=== PATIENT | male | born 1955 | race Caucasian/White ===

== ENCOUNTER 2020-01-21 08:02 | Emergency (ER) | payer BC ==
[2020-01-21 08:17] VITALS: BP 172/81
[2020-01-21] MEDS ORDERED: IPRATROPIUM/ALBUTEROL 0.5-2.5 MG/3 ML AMPUL NEB ONE (08:34)
[2020-01-21] MEDS ORDERED: GLIMEPIRIDE 1 MG TABLET PO ONE (08:35)
[2020-01-21] MEDS ORDERED: PIOGLITAZONE HCL 30 MG TABLET PO ONE (08:35)
[2020-01-21] MEDS ORDERED: METFORMIN HCL 500 MG TABLET PO ONE (08:36)
[2020-01-21] MEDS ORDERED: LISINOPRIL 10 MG TABLET PO ONE (08:36)
--- NOTE | 2020-01-21 08:53 | ER Document Report ---
Entered by LAURO FRY SCRIBE 01/21/20824 Acting as scribe for:LILY FAIRCHILD MD ED General - General Chief Complaint: Congestion Stated Complaint: SHORT OF BREATH,COUGH Time Seen by Provider: 01/21/20 08:15 Primary Care Provider: MAYA KAPOOR MD [Primary Care Provider] - Follow up as needed Mode of Arrival: Ambulatory Information source: Patient Notes: This 64 year old male patient presents to the emergency department today with complaints of shortness of breath which he noticed when he woke up this morning. Patient reports that he went to [facility] urgent care and they sent him here. Patient mentions that he has had bronchitis in the past and it felt like this. Patient mentions that he is prescribed an advair inhaler but mentions that he only uses it has needed, mentioning that he used it this morning. He reports that he does not have an albuterol inhaler at home. - Related Data Allergies/Adverse Reactions: No Known Allergies Allergy (Verified 01/21/20 08:08) Home Medications: bp. dm. neuropathy Past Medical History - General Information source: Patient - Social History Smoking Status: Former Smoker Cigarette use (# per day): No Chew tobacco use (# tins/day): No Frequency of alcohol use: None Drug Abuse: None Family History: Reviewed & Not Pertinent Patient has homicidal ideation: No - Past Medical History Cardiac Medical History: Reports: Hx Hypertension Endocrine Medical History: Reports: Hx Diabetes Mellitus Type 2 Past Surgical History: Reports: Other - Unknown procedure to penis as child Review of Systems - Review of Systems Constitutional: No symptoms reported EENT: See HPI, Nose congestion Cardiovascular: No symptoms reported Respiratory: See HPI, Short of breath Gastrointestinal: No symptoms reported Genitourinary: No symptoms reported Male Genitourinary: No symptoms reported Musculoskeletal: No symptoms reported Skin: No symptoms reported Hematologic/Lymphatic: No symptoms reported Neurological/Psychological: No symptoms reported -: Yes All other systems reviewed and negative Physical Exam - Vital signs Vitals: Temp 98.1 F 01/21/20 08:09 - Notes Notes: Physical Exam: General: Alert, appears well. HEENT: Normocephalic. Atraumatic. PERRL. Extraocular movements intact. Oropharynx clear. Neck: Supple. Non-tender. Respiratory: No respiratory distress, does not appear short of breath. Wheezing and rhonchi bilaterally. Cardiovascular: Regular rate and rhythm. Abdominal: Obese. Non-tender. No distension. Normal Bowel Sounds. Back: No gross abnormalities. Extremities: Moves all four extremities. Upper extremities: Normal inspection. Normal ROM. Lower extremities: Normal inspection. No edema. Normal ROM. Neurological: Normal cognition. AAOx4. Normal speech. Psychological: Normal affect. Normal Mood. Skin: Warm. Dry. Normal color. Course - Re-evaluation Re-evalutation: 01/21/20 10:50 After the DuoNeb, patient feels better and the wheezes seem to be gone. There is some rhonchi when he coughs consistent with his history that suggest he is developed a viral bronchitis and is wheezing. - Vital Signs Vital signs: Temp Pulse Resp BP Pulse Ox 98.1 F 82 16 172/81 H 95 01/21/20 08:10 01/21/20 08:10 01/21/20 08:10 01/21/20 08:10 01/21/20 08:10 Discharge - Discharge Clinical Impression: Viral upper respiratory tract infection with cough, Bronchitis with wheezing Condition: Stable Disposition: HOME, SELF-CARE Additional Instructions: Bronchitis with Bronchospasm (Wheezing) You have bronchitis with bronchospasm (wheezing). Sometimes people develop wheezing with a chest cold. This occurs either because of an underlying tendency toward asthma or because the virus itself irritates the bronchial tubes. This irritation causes cough, shortness of breath, and wheezing. Emergency treatment of bronchospasm may include adrenaline shots or bronchodilator aerosol. You may feel lightheaded and have a rapid pulse for an hour or two. Rest and get plenty of fluids. At home, we'll treat you with a bronchodilator inhaler. Corticosteroids may be required for some patients. Until you recover, avoid chemical fumes, dusts, pollens, and exercising in very cold or dry air. If you smoke, stop now! Most cases of bronchitis get better without antibiotics. We prescribe antibiotics when we believe bacteria are damaging your airways, or if there's high risk the bronchitis will worsen into pneumonia. Increase your fluid intake. A cool mist humidifier may make your lungs more comfortable. An expectorant (cough medicine that loosens phlegm) can help. Repeated episodes of bronchitis and bronchospasm may result in lung damage -- for example, chronic bronchitis, recurrent pneumonias, or emphysema. If you develop a fever, increased wheezing, chest pain, or severe shortness of breath, you should contact the doctor immediately. Use your Advair inhaler twice daily. Use the albuterol inhaler 2 puffs every 2-4 hours for wheezing as needed. Drink plenty of fluids and get plenty of rest. You were given your morning medicines of Metformin, glimepiride, pioglitazone, and lisinopril. Follow-up with Dr. Harman if not improving. RETURN TO THE EMERGENCY ROOM IF ANY NEW OR WORSENING SYMPTOMS. Prescriptions: Albuterol Sulfate [Proair Hfa Inhalation Aerosol 8.5 gm Mdi] 2 puff IH ASDIR PRN #1 mdi PRN Reason: Referrals: MAYA KAPOOR MD [Primary Care Provider] - Follow up as needed I personally performed the services described in the documentation, reviewed and edited the documentation which was dictated to the scribe in my presence, and it accurately records my words and actions.
== END 2020-01-21 11:15 | disposition home or self-care (01) ==
LOC: ER 08:02
DX: J40 Bronchitis, not specified as acute or chronic (principal); J06.9 Acute upper respiratory infection, unspecified; R06.02 Shortness of breath; I10 Essential (primary) hypertension; E11.9 Type 2 diabetes mellitus without complications
CPT/HCPCS: 94640; 99283; J3490

== ENCOUNTER 2020-01-23 11:59 | Emergency (ER) | payer BC ==
--- NOTE | 2020-01-23 13:26 | RADIOLOGY REPORT (SQ) ---
EXAM DESCRIPTION: CHEST SINGLE VIEW IMAGES COMPLETED DATE/TIME: 01/23/2020 11:54 am REASON FOR STUDY: shortness of breath. COMPARISON: None. EXAM PARAMETERS: NUMBER OF VIEWS: One view. TECHNIQUE: Single frontal radiographic view of the chest acquired. RADIATION DOSE: NA LIMITATIONS: None. FINDINGS: LUNGS AND PLEURA: No opacities, masses or pneumothorax. No pleural effusion. MEDIASTINUM AND HILAR STRUCTURES: No masses. Contour normal. HEART AND VASCULAR STRUCTURES: Heart normal in size. Normal vasculature. BONES: No acute findings. HARDWARE: None in the chest. OTHER: No other significant finding. IMPRESSION: NO ACUTE RADIOGRAPHIC FINDING IN THE CHEST. TECHNICAL DOCUMENTATION: JOB ID: [id number] 2010 [employer]- All Rights Reserved Reading location - IP/workstation name: [id number]
[2020-01-23] MEDS ORDERED: IPRATROPIUM/ALBUTEROL 0.5-2.5 MG/3 ML AMPUL NEB ONE (13:33)
[2020-01-23 13:42] LABS: ABSOLUTE EOSINOPHILS # (AUTO) 0.1 10^3/uL (0.0-0.6); ABSOLUTE MONOCYTES (AUTO) 0.7 10^3/uL (0.1-1.4); ABSOLUTE NEUT (AUTO) 5.3 10^3/uL (1.7-8.2); BASOPHILS % (AUTO) 0.5 % (0-2); EOSINOPHILS % (AUTO) 1.4 % (0-6); HEMATOCRIT 38.9 % (37.9-51.0); HEMOGLOBIN 13.4 g/dL (13.5-17.0); LYMPHOCYTES % (AUTO) 24.7 % (13-45); MEAN CORPUSCULAR HEMOGLOBIN 30.8 pg (27.0-33.4); MEAN CORPUSCULAR HGB CONC 34.4 g/dL (32.0-36.0); MEAN CORPUSCULAR VOLUME 90 fl (80-97); MONOCYTES % (AUTO) 8.6 % (3-13); PLATELET COUNT 191 10^3/uL (150-450); RED BLOOD COUNT 4.34 10^6/uL (4.35-5.55); RED CELL DISTRIBUTION WIDTH 14.2 % (11.5-14.0); SEGMENTED NEUTROPHILS % (AUTO) 64.8 % (42-78); TOTAL CELLS COUNTED % (AUTO) 100 %; WHITE BLOOD COUNT 8.1 10^3/uL (4.0-10.5)
[2020-01-23 14:02] LABS: ALBUMIN 4.5 g/dL (3.5-5.0); ALKALINE PHOSPHATASE 50 U/L (38-126); ANION GAP 10 (5-19); ASPARTATE AMINO TRANSFERASE 27 U/L (17-59); BILIRUBIN,DIRECT 0.1 mg/dL (0.0-0.4); BILIRUBIN,TOTAL 0.7 mg/dL (0.2-1.3); BLOOD UREA NITROGEN 17 mg/dL (7-20); CALCIUM 9.9 mg/dL (8.4-10.2); CARBON DIOXIDE 28 mmol/L (22-30); CHLORIDE 102 mmol/L (98-107); GLUCOSE 86 mg/dL (75-110); POTASSIUM 4.1 mmol/L (3.6-5.0); TOTAL PROTEIN 7.6 g/dL (6.3-8.2)
[2020-01-23] MEDS ORDERED: PREDNISONE 20 MG TABLET PO ONE (14:05)
[2020-01-23] MEDS ORDERED: ALBUTEROL SULFATE 0.083% NEB 2.5 MG/3 ML AMPUL NEB ONE ×2 (14:05→14:41)
--- NOTE | 2020-01-23 14:23 | ER Document Report ---
Entered by LAURO FRY SCRIBE 01/23/20 1403 Acting as scribe for:LILY FAIRCHILD MD ED Respiratory Problem - General Chief Complaint: Shortness Of Breath Stated Complaint: SHORT OF BREATH,CONGESTION Time Seen by Provider: 01/23/20 13:32 Primary Care Provider: MAYA KAPOOR MD [Primary Care Provider] - Follow up as needed Mode of Arrival: Ambulatory Information source: Patient Notes: This 64-year-old male patient presents to the emergency department today with complaints of waking up this morning at 5:00 AM with shortness of breath, stating he felt restless and "could not get still". Patient was seen here x2 days ago for similar symptoms and he was diagnosed with bronchitis. He had considerable improvement with the nebulizer treatment so he was prescribed an albuterol inhaler which he has been using and he has continued to use his Advair Diskus as prescribed. He was not put on prednisone at the time because of his history of type 2 diabetes and because of how quickly he cleared up with the breathing treatments. Patient did mention to nursing staff that he came into contact with someone that had COVID-19 a week or so ago, this person tested positive in November and they are now over the illness according to him. - Related Data Allergies/Adverse Reactions: No Known Allergies Allergy (Verified 01/21/20 08:08) Past Medical History - General Information source: Patient - Social History Smoking Status: Former Smoker Cigarette use (# per day): No Chew tobacco use (# tins/day): No Frequency of alcohol use: None Drug Abuse: None Occupation: produce [employer] Lives with: Family Family History: Reviewed & Not Pertinent - Past Medical History Cardiac Medical History: Reports: Hx Hypertension Pulmonary Medical History: Reports: Hx Bronchitis Endocrine Medical History: Reports: Hx Diabetes Mellitus Type 2 Past Surgical History: Reports: Other - Unknown procedure to penis as child Review of Systems - Review of Systems Constitutional: No symptoms reported EENT: See HPI, Nose congestion Cardiovascular: No symptoms reported Respiratory: See HPI, Short of breath Gastrointestinal: No symptoms reported Genitourinary: No symptoms reported Male Genitourinary: No symptoms reported Musculoskeletal: No symptoms reported Skin: No symptoms reported Hematologic/Lymphatic: No symptoms reported Neurological/Psychological: No symptoms reported -: Yes All other systems reviewed and negative Physical Exam - Vital signs Vitals: Resp Pulse Ox 17 95 01/23/20 12:38 01/23/20 12:38 - Notes Notes: Physical Exam: General: Alert, appears well. HEENT: Normocephalic. Atraumatic. PERRL. Extraocular movements intact. Oropharynx clear. Neck: Supple. Non-tender. Respiratory: Mild respiratory distress. Wheezing and rhonchi bilaterally. Cardiovascular: Regular rate and rhythm. Abdominal: Obese. Non-tender. No distension. Normal Bowel Sounds. Back: No gross abnormalities. Extremities: Moves all four extremities. Upper extremities: Normal inspection. Normal ROM. Lower extremities: Normal inspection. No edema. Normal ROM. Neurological: Normal cognition. AAOx4. Normal speech. Psychological: Normal affect. Normal Mood. Skin: Warm. Dry. Normal color. Course - Re-evaluation Re-evalutation: 01/23/20 16:14 Patient is feeling much better after the nebulizer treatments. He still has some end expiratory wheezes with rhonchi when he coughs. He was given prednisone 60 mg and we reviewed the proper use of his inhaler. He will continue the Advair every 12 hours, albuterol 2 puffs every 2-4 hours if needed, and will be prescribed prednisone to start tomorrow. - Vital Signs Vital signs: Temp Pulse Resp BP Pulse Ox 20 131/74 H 94 01/23/20 13:01 01/23/20 13:01 01/23/20 13:01 - Laboratory Result Diagrams: 01/23/20 13:28 01/23/20 13:28 Laboratory results interpreted by me: 01/23/20 13:28 RBC 4.34 L Hgb 13.4 L RDW 14.2 H Discharge - Discharge Clinical Impression: Acute bronchitis with bronchospasm Condition: Stable Disposition: HOME, SELF-CARE Additional Instructions: Bronchitis with Bronchospasm (Wheezing) You have bronchitis with bronchospasm (wheezing). Sometimes people develop wheezing with a chest cold. This occurs either because of an underlying tendency toward asthma or because the virus itself irritates the bronchial tubes. This irritation causes cough, shortness of breath, and wheezing. Emergency treatment of bronchospasm may include adrenaline shots or bronchodilator aerosol. You may feel lightheaded and have a rapid pulse for an hour or two. Rest and get plenty of fluids. At home, we'll treat you with a bronchodilator inhaler. Corticosteroids may be required for some patients. Until you recover, avoid chemical fumes, dusts, pollens, and exercising in very cold or dry air. If you smoke, stop now! Most cases of bronchitis get better without antibiotics. We prescribe antibiotics when we believe bacteria are damaging your airways, or if there's high risk the bronchitis will worsen into pneumonia. Increase your fluid intake. A cool mist humidifier may make your lungs more comfortable. An expectorant (cough medicine that loosens phlegm) can help. Repeated episodes of bronchitis and bronchospasm may result in lung damage -- for example, chronic bronchitis, recurrent pneumonias, or emphysema. If you develop a fever, increased wheezing, chest pain, or severe shortness of breath, you should contact the doctor immediately. Use your Advair Diskus every 12 hours. Use your albuterol inhaler 2 puffs every 2-4 hours as needed for wheezing. Start taking the prednisone tomorrow--you were given today's dose here in the emergency room. Be sure to drink plenty of fluids, your blood sugars will likely go high for several days while you are taking the prednisone. Get plenty of rest. Follow-up with Dr. Harman if you are not improving over the next few days. RETURN TO THE EMERGENCY ROOM IF ANY NEW OR WORSENING SYMPTOMS. Prescriptions: Prednisone [Deltasone 10 mg Tablet] 10 mg PO ASDIR PRN #21 tablet PRN Reason: Referrals: MAYA KAPOOR MD [Primary Care Provider] - Follow up as needed I personally performed the services described in the documentation, reviewed and edited the documentation which was dictated to the scribe in my presence, and it accurately records my words and actions.
--- NOTE | 2020-01-23 15:10 | EKG REPORT ---
SEVERITY:- ABNORMAL ECG - SINUS OR ECTOPIC ATRIAL RHYTHM LEFT ATRIAL ABNORMALITY PROBABLE INFERIOR INFARCT, AGE INDETERMINATE BORDERLINE R WAVE PROGRESSION, ANTERIOR LEADS LATERAL LEADS ARE ALSO INVOLVED : Confirmed by: Kendall Rabago MD 23-Jan-2020 15:10:14
[2020-01-23 16:41] VITALS: BP 141/70
== END 2020-01-23 16:41 | disposition home or self-care (01) ==
LOC: ER 11:59
DX: J20.9 Acute bronchitis, unspecified (principal); Z20.828 Contact with and (suspected) exposure to other viral communicable diseases; I10 Essential (primary) hypertension; E11.9 Type 2 diabetes mellitus without complications
CPT/HCPCS: 93005; 99285; 36415; 85025; 80053; 71045; 93010; U0003; J7512; J7613; C9803; 87635

== ENCOUNTER 2020-01-28 10:11 | Observation (INO) | payer BC ==
[2020-01-28] MEDS ORDERED: METHYLPREDNISOLONE INJ 125 MG/2 ML SDV IV ONE (10:47)
--- NOTE | 2020-01-28 10:53 | ER Document Report ---
ED Respiratory Problem - General Chief Complaint: Shortness Of Breath Stated Complaint: SHORTNESS OF BREATH Time Seen by Provider: 01/28/20 10:37 Primary Care Provider: MAYA KAPOOR MD [Primary Care Provider] - Follow up as needed Information source: Patient Notes: 64-year-old male presents to ED for evaluation of increased dyspnea over the last 1 to 2 days. Patient has been seen here 3 times in the last week for similar complaints. Notes that he was diagnosed with bronchitis. Patient reports that he was started on a course of steroids as well as Ventolin. Notes improvement till yesterday when he felt increasingly short of breath. Denies any chest pain or chest tightness. Patient denies cardiac history. Patient has not had any cardiac catheterization or stress test in the past. Reports that he has 2 days left on his prednisone medication. Denies any fever or chills. Has tested negative for COVID in the last week. Denies any aggravating factors. TRAVEL OUTSIDE OF THE [place] IN LAST 30 DAYS: No - HPI Patient complains to provider of: COPD - Related Data Allergies/Adverse Reactions: No Known Allergies Allergy (Verified 01/21/20 08:08) Home Medications: Metformin, Gabapentin, albuterol Past Medical History - Social History Smoking Status: Former Smoker Chew tobacco use (# tins/day): No Frequency of alcohol use: None Drug Abuse: None Family History: Reviewed & Not Pertinent - Past Medical History Cardiac Medical History: Reports: Hx Hypertension Denies: Hx Heart Attack Pulmonary Medical History: Reports: Hx Bronchitis Denies: Hx Asthma Neurological Medical History: Denies: Hx Seizures Endocrine Medical History: Reports: Hx Diabetes Mellitus Type 2 GI Medical History: Denies: Hx Hepatitis, Hx Hiatal Hernia, Hx Ulcer Infectious Medical History: Denies: Hx Hepatitis Past Surgical History: Reports: Other - Unknown procedure to penis as child. Denies: Hx Open Heart Surgery, Hx Pacemaker Review of Systems - Review of Systems Notes: Constitutional: Negative for fever. HENT: Negative for sore throat. Eyes: Negative for visual changes. Cardiovascular: Negative for chest pain. Respiratory: Positive for shortness of breath Gastrointestinal: Negative for abdominal pain, vomiting or diarrhea. Genitourinary: Negative for dysuria. Musculoskeletal: Negative for back pain. Skin: Negative for rash. Neurological: Negative for headaches, weakness or numbness. 10 point ROS negative except as marked above and in HPI. Physical Exam - Vital signs Vitals: Temp Pulse Resp BP Pulse Ox 98.3 F 56 L 18 147/47 H 95 01/28/20 10:21 01/28/20 10:21 01/28/20 10:21 01/28/20 10:21 01/28/20 10:21 Notes: PHYSICAL EXAMINATION: GENERAL: Well-appearing, well-nourished with audible wheezing. HEAD: Atraumatic, normocephalic. EYES: Pupils equal round and reactive to light, extraocular movements intact, sclera anicteric, conjunctiva are normal. ENT: nares patent, oropharynx clear without exudates. Moist mucous membranes. NECK: Normal range of motion, supple without lymphadenopathy LUNGS: Bilateral audible wheezing with scattered rhonchi. Crackles noted. HEART: Regular rate and rhythm without murmurs ABDOMEN: Soft, nontender, normoactive bowel sounds. No guarding, no rebound. No masses appreciated. EXTREMITIES: Normal range of motion, no pitting or edema. No cyanosis. NEUROLOGICAL: No focal neurological deficits. Moves all extremities spontaneously and on command. PSYCH: Normal mood, normal affect. SKIN: Warm, Dry, normal turgor, no rashes or lesions noted. Course - Re-evaluation Re-evalutation: 01/28/20 13:03 Was seen in ED for evaluation of increased shortness of breath. Patient been seen for bronchitis several times within the last week. Started on steroids as well as Ventolin for outpatient management. He did not receive antibiotics. Came back as he had increased shortness of breath of the last day. Denies chest pain or pressure. Patient was evaluated with a repeat chest x-ray which was nonacute at this time. He has been negative for Covid prior. Patient did desaturate in the department down to 91% require 2 L of oxygen. Given nebulized medication with improvement. Also given Solu-Medrol. Patient did elevated troponin to 0.08. This is new for patient he does not have prior troponins to review. This is most likely demand ischemia. I do not see ST segment e levations or depressions on his EKG. As he has had no prior cardiac evaluation and this is several visits for him all requiring nebulized medications and increased dosage of steroids I do believe that he will require admission for further management. Patient also started on rocephin and azithromycin for empiric antibiotic coverage. 01/28/20 16:14 I initially had spoken with Dr. Whyte who expressed concern over patient's orthopnea as documented by triage. He recommended a BNP and had expressed concern that he saw some depression in V2 on patient's newest EKG. There is also a substantial amount of PVCs. Recommended that I speak with the next hospitalist physician after BMP has resulted. I further consulted Dr. Rdz and he has agreed to evaluate patient after his repeat troponin to decide on admission versus transfer. His BN peptide was elevated at 1600 and he did receive a dose of IV push Lasix. He will determine disposition upon reevaluation of troponin. 01/28/20 16:16 On reevaluation, patient is resting comfortable and Dr. Rdz has agreed to admit patient to Tele observation at this facility. - Vital Signs Vital signs: Temp Pulse Resp BP Pulse Ox 98.3 F 56 L 16 162/62 H 96 01/28/20 10:21 01/28/20 10:21 01/28/20 15:01 01/28/20 15:01 01/28/20 15:01 - Laboratory Result Diagrams: 01/28/20 11:21 01/28/20 11:21 Laboratory results interpreted by me: 01/28/20 01/28/20 01/28/20 11:21 11:21 11:21 WBC 10.6 H RDW 14.2 H BUN 22 H NT-Pro-B Natriuret Pep 1600 H - Diagnostic Test Radiology reviewed: Image reviewed Radiology results interpreted by me: 01/28/20 13:02 I reviewed the imaging myself in addition to radiology did not see evidence of a ny infiltrates. - EKG Interpretation by Me EKG shows normal: Sinus rhythm Rate: Bradycardia Rhythm: Other Additional EKG results interpreted by me: 01/28/20 13:02 Bigeminy which is changed from prior - Transfer of Care Care transferred to following provider: Dr. Rdz Discharge - Discharge Clinical Impression: COPD exacerbation Condition: Stable Disposition: ADMITTED OBSERVATION Admitting Provider: Kendell (Hospitalist) Unit Admitted: Telemetry Referrals: MAYA KAPOOR MD [Primary Care Provider] - Follow up as needed
[2020-01-28] MEDS: ALBUTEROL SULFATE 0.083% NEB 2.5 MG/3 ML AMPUL NEB SCH ×2 (11:18→11:25)
--- NOTE | 2020-01-28 11:29 | RADIOLOGY REPORT (SQ) ---
EXAM DESCRIPTION: CHEST SINGLE VIEW IMAGES COMPLETED DATE/TIME: 01/28/2020 11:07 am REASON FOR STUDY: pneumonia COMPARISON: AP view of the chest from 01/23/2020. EXAM PARAMETERS: NUMBER OF VIEWS: One view. TECHNIQUE: An AP view of the chest was obtained. RADIATION DOSE: NA LIMITATIONS: None. FINDINGS: LUNGS AND PLEURA: The patchy opacities in the inferior aspect of the right lung could repr esent atelectasis or in the proper clinical setting a pneumonia. There strands of subsegmental atele ctasis or scar in the inferior aspect of the left lung. There is no pleural effusion or pneumothorax. MEDIASTINUM AND HILAR STRUCTURES: No mediastinal or hilar contour abnormality. HEART AND VASCULAR STRUCTURES: The cardiac silhouette is enlarged. BONES: No acute findings. HARDWARE: None in the chest. OTHER: No other finding. IMPRESSION: Patchy opacities in the inferior aspect of the right lung that could represent atelectas is or in the proper clinical setting a pneumonia. TECHNICAL DOCUMENTATION: JOB ID: [id number] 2010 [employer]- All Rights Reserved Reading location - IP/workstation name: [email or web address]
[2020-01-28 11:32] LABS: ABSOLUTE MONOCYTES (AUTO) 0.8 10^3/uL (0.1-1.4); ABSOLUTE NEUT (AUTO) 6.8 10^3/uL (1.7-8.2); BASOPHILS % (AUTO) 0.3 % (0-2); EOSINOPHILS % (AUTO) 0.2 % (0-6); HEMATOCRIT 41.5 % (37.9-51.0); MEAN CORPUSCULAR HEMOGLOBIN 30.8 pg (27.0-33.4); MEAN CORPUSCULAR HGB CONC 33.7 g/dL (32.0-36.0); MEAN CORPUSCULAR VOLUME 91 fl (80-97); MONOCYTES % (AUTO) 7.3 % (3-13); PLATELET COUNT 208 10^3/uL (150-450); RED BLOOD COUNT 4.54 10^6/uL (4.35-5.55); RED CELL DISTRIBUTION WIDTH 14.2 % (11.5-14.0); SEGMENTED NEUTROPHILS % (AUTO) 64.2 % (42-78); TOTAL CELLS COUNTED % (AUTO) 100 %; WHITE BLOOD COUNT 10.6 10^3/uL (4.0-10.5)
[2020-01-28 11:57] LABS: ALBUMIN 4.2 g/dL (3.5-5.0); ALKALINE PHOSPHATASE 47 U/L (38-126); ANION GAP 8 (5-19); ASPARTATE AMINO TRANSFERASE 24 U/L (17-59); BILIRUBIN,DIRECT 0.1 mg/dL (0.0-0.4); BILIRUBIN,TOTAL 0.7 mg/dL (0.2-1.3); BLOOD UREA NITROGEN 22 mg/dL (7-20); CALCIUM 9.8 mg/dL (8.4-10.2); CARBON DIOXIDE 30 mmol/L (22-30); CHLORIDE 99 mmol/L (98-107); GLUCOSE 95 mg/dL (75-110); POTASSIUM 4.2 mmol/L (3.6-5.0); TOTAL PROTEIN 7.3 g/dL (6.3-8.2)
[2020-01-28 12:23] LABS: APPEARANCE,URINE CLEAR; BILIRUBIN,URINE NEGATIVE (NEGATIVE); COLOR,URINE YELLOW; GLUCOSE, URINE NEGATIVE (NEGATIVE); KETONES,URINE NEGATIVE (NEGATIVE); LEUKOCYTE ESTERASE,URINE NEGATIVE (NEGATIVE); NITRITE,URINE NEGATIVE (NEGATIVE); PROTEIN,URINE NEGATIVE (NEGATIVE); URINE SPECIFIC GRAVITY 1.012; UROBILINOGEN,URINE NEGATIVE mg/dL (<2.0)
[2020-01-28] MEDS ORDERED: CEFTRIAXONE 1 GM/D5W RTU 1 GM/50 ML RTUPB IV ONE (13:19)
[2020-01-28] MEDS ORDERED: AZITHROMYCIN 250 MG TABLET PO ONE (13:19)
[2020-01-28] MEDS ORDERED: FUROSEMIDE INJ/PF 20 MG/2 ML SDV IV ONE (15:09)
[2020-01-28] MEDS ORDERED: LEVALBUTEROL HCL NEB 1.25 MG/3 ML AMPUL NEB PRN (16:09)
[2020-01-28] MEDS ORDERED: ACETAMINOPHEN 325 MG TABLET PO PRN (16:09)
[2020-01-28] MEDS ORDERED: MAG HYDROX/AL HYDROX/SIMETH SUSP 30 ML UDCUP PO PRN (16:09)
[2020-01-28] MEDS ORDERED: PROMETHAZINE HCL INJ 25 MG/1 ML VIAL IV PRN (16:09)
[2020-01-28] MEDS ORDERED: HYDROCORTISONE PE APP TOP PRN (16:16)
[2020-01-28] MEDS ORDERED: DEXTROSE 50%-WATER 25 GM/50 ML DISP.SYRIN IV PRN ×2 (16:17)
[2020-01-28] MEDS ORDERED: GLUCAGON,HUMAN RECOMB 1 MG INJ IM PRN (16:17)
[2020-01-28] MEDS ORDERED: DEXTROSE 40% GEL 15 GM TUBE PO PRN ×2 (16:17)
[2020-01-28] MEDS ORDERED: DIPHENHYDRAMINE HCL 50 MG CAPSULE PO PRN (16:32)
--- NOTE | 2020-01-28 16:57 | PDOC H&P ---
History of Present Illness Admission Date/PCP: MAYA KAPOOR MD Patient complains of: Shortness of breath History of Present Illness: JACOB CUEVAS is a 64 year old male with history of hypertension, type 2 diabetes, presents to the hospital with complaints of shortness of breath that happened last night while patient was sleeping. He states he was laying down in bed and could not catch his breath and had to get up. He has not had similar episodes prior to this. Seems this was a one-time event last night. However notably he has had ongoing shortness of breath for most a week now for which he has presented to the ER twice to be evaluated. On the first visit he was diagnosed with bronchitis and sent with an albuterol inhaler. On his next visit just a few days ago, he was tested for COVID-19 which came back negative and was sent home from the ER with prednisone to be taking along with his albuterol inhaler and Advair to help with his bronchitis. He has had some trouble using his albuterol inhaler at home but was able to figure out the workings of it I used it yesterday. He denies any chest pain, fever or chills. Denies any diar corie, nausea or vomiting. Denies any prior history of COPD though he is a former smoker. Denies any history of CHF, heart attack, CAD. In the ER, patient was noted to be wheezing on exam by ER provider and given nebulizer treatments. Patient currently reports feeling a lot better since then. Past Medical History Cardiac Medical History: Reports: Hypertension Denies: Myocardial Infarction Pulmonary Medical History: Reports: Bronchitis Denies: Asthma Neurological Medical History: Denies: Seizures Endocrine Medical History: Reports: Diabetes Mellitus Type 2 GI Medical History: Denies: Hepatitis, Hiatal Hernia Hematology: Denies: Anemia, Sickle Cell Disease Past Surgical History Past Surgical History: Reports: Other - Unknown procedure to penis as child Denies: Pacemaker Social History Smoking Status: Former Smoker Electronic Cigarette use?: No Frequency of Alcohol Use: None Hx Recreational Drug Use: No - Advance Directive Resuscitation Status: Full Code Family History Family History: Hypertension Parental Family History Reviewed: Yes Children Family History Reviewed: Yes Sibling(s) Family History Reviewed.: Yes Medication/Allergy Home Medications: Metformin HCl [Glucophage] 500 mg PO DAILY 05/04/13 Fluticasone/Salmeterol [Advair 250-50 Diskus 14 Dose/Diskus] 1 inh IH Q12H 01/28/20 Gabapentin [Neurontin 300 mg Capsule] 300 mg PO DAILY@1200 01/28/20 Gabapentin [Neurontin 300 mg Capsule] 600 mg PO Q12 01/28/20 Glimepiride [Amaryl] 2 mg PO DAILY 01/28/20 Hydrocortisone 1 appful RC BIDP PRN 01/28/20 Lisinopril [Zestril] 20 mg PO DAILY 01/28/20 Pioglitazone HCl [Actos 15 mg Tablet] 45 mg PO DAILY 01/28/20 Allergies/Adverse Reactions: No Known Allergies Allergy (Verified 01/21/20 08:08) Review of Systems Constitutional: ABSENT: chills, fatigue, fever(s), headache(s) Eyes: ABSENT: visual disturbances Ears: ABSENT: hearing changes Nose, Mouth, and Throat: ABSENT: headache(s) Cardiovascular: PRESENT: orthropnea - 1 episode. ABSENT: chest pain, dyspnea on exertion, edema Respiratory: PRESENT: dyspnea Gastrointestinal: ABSENT: abdominal pain, diarrhea, nausea, vomiting Genitourinary: ABSENT: dysuria Musculoskeletal: PRESENT: other - denies muscle aches Integumentary: ABSENT: diaphoresis Neurological: PRESENT: paresthesias - chronic neuropathy in feet Psychiatric: PRESENT: anxiety - Has difficulty sleeping when in hospital Endocrine: ABSENT: polyuria Allergic/Immunologic: PRESENT: seasonal rhinorrhea Physical Exam Vital Signs: Temp Pulse Resp BP Pulse Ox 98.3 F 56 L 16 162/62 H 96 01/28/20 10:21 01/28/20 10:21 01/28/20 15:01 01/28/20 15:01 01/28/20 15:01 Intake & Output 01/27/20 01/28/20 01/29/20 06:59 06:59 06:59 Intake Total 50 Balance 50 Weight 129.9 kg General appearance: PRESENT: no acute distress, cooperative Head exam: PRESENT: normocephalic Eye exam: PRESENT: EOMI Neck exam: ABSENT: JVD Respiratory exam: PRESENT: clear to auscultation oli, symmetrical, unlabored. ABSENT: crackles, tachypnea, wheezes Cardiovascular exam: PRESENT: irregular rhythm, +S1, +S2. ABSENT: tachycardia GI/Abdominal exam: PRESENT: soft. ABSENT: rebound, rigid, tenderness Extremities exam: PRESENT: pedal edema - Trace/minimal Musculoskeletal exam: PRESENT: ambulatory Neurological exam: PRESENT: alert, awake, oriented to person, oriented to place, oriented to time, oriented to situation Psychiatric exam: ABSENT: agitated, anxious Focused psych exam: ABSENT: pressured speech Skin exam: ABSENT: jaundice Results Laboratory Results: 01/28/20 11:21 01/28/20 11:21 01/28/20 01/28/20 01/28/20 11:21 11:21 11:21 WBC 10.6 H RBC 4.54 Hgb 14.0 Hct 41.5 MCV 91 MCH 30.8 MCHC 33.7 RDW 14.2 H Plt Count 208 Seg Neutrophils % 64.2 Sodium 137.3 Potassium 4.2 Chloride 99 Carbon Dioxide 30 Anion Gap 8 BUN 22 H Creatinine 1.03 Est GFR ( Amer) > 60 Glucose 95 Calcium 9.8 Magnesium 1.8 Total Bilirubin 0.7 AST 24 Alkaline Phosphatase 47 Total Protein 7.3 Albumin 4.2 Urine Color Urine Appearance Urine pH Ur Specific [place] Urine Protein Urine Glucose (UA) Urine Ketones Urine Blood Urine Nitrite Ur Leukocyte Esterase Urine WBC (Auto) Urine RBC (Auto) 01/28/20 11:46 WBC RBC Hgb Hct MCV MCH MCHC RDW Plt Count Seg Neutrophils % Sodium Potassium Chloride Carbon Dioxide Anion Gap BUN Creatinine Est GFR ( Amer) Glucose Calcium Magnesium Total Bilirubin AST Alkaline Phosphatase Total Protein Albumin Urine Color YELLOW Urine Appearance CLEAR Urine pH 6.0 Ur Specific [place] 1.012 Urine Protein NEGATIVE Urine Glucose (UA) NEGATIVE Urine Ketones NEGATIVE Urine Blood NEGATIVE Urine Nitrite NEGATIVE Ur Leukocyte Esterase NEGATIVE Urine WBC (Auto) 0 Urine RBC (Auto) 0 01/28/20 01/28/20 01/28/20 11:21 11:21 14:54 Troponin I 0.086 0.086 NT-Pro-B Natriuret Pep 1600 H Impressions: Chest X-Ray 01/28/20 10:48 IMPRESSION: Patchy opacities in the inferior aspect of the right lung that could represent atelectasis or in the proper clinical setting a pneumonia. Assessment and Plan - Diagnosis (1) Reactive airway disease with acute exacerbation Qualifiers: Asthma severity: unspecified severity Asthma persistence: unspecified Qualified Code(s): J45.901 - Unspecified asthma with (acute) exacerbation Is this a current diagnosis for this admission?: Yes Plan: He was noted by ER provider to be wheezing on presentation. Currently feels better after receiving breathing treatments and not currently wheezing on my exam. He may be having reactive bronchospasms to his acute bronchitis or may have underlying COPD having an acute exacerbation especially since he has extensive smoking history. Chest x-ray only shows mild right lower lobe atelectasis. Has mild leukocytosis on blood work but that is secondary to his prednisone the past few days. We will treat with duo nebs every 6 hours. Continue p.o. prednisone. Azithromycin. Admitted for observation (2) Acute bronchitis with bronchospasm Is this a current diagnosis for this admission?: Yes Plan: Recent Covid test few days ago was negative. Supportive care, prednisone, Flonase (3) Ventricular trigeminy Is this a current diagnosis for this admission?: Yes Plan: Notably the whole time he has been here his heart rhythm has been flipping in between bigeminy and trigeminy throughout. He denies any history of cardiac disease. His EKG from his prior visit did not have this with him. Electrolytes including potassium and magnesium are normal I will give him a dose of magnesium sulfate to bring his Mg >2 BNP is elevated though he is not fluid overloaded on clinical examination We will check an echocardiogram Cardiology consult in the morning Keep on telemetry (4) Elevated troponin Is this a current diagnosis for this admission?: Yes Plan: Flat trend 0.086-0.086. Denies chest pain. Denies history of CAD. (5) Hypertension Is this a current diagnosis for this admission?: Yes Plan: Resume lisinopril (6) Type 2 diabetes mellitus Qualifiers: Diabetes mellitus buttermaker continuous churn insulin use: without buttermaker continuous churn use Diabetes mellitus complication status: with neurologic complications Diabetes mellitus complication detail: with unspecified neuropathy Qualified Code(s): E11.40 - Type 2 diabetes mellitus with diabetic neuropathy, unspecified Is this a current diagnosis for this admission?: Yes Plan: Continue Metformin and pioglitazone. Sliding scale insulin Accu-Cheks. Resume Gabapentin. (7) Obesity (BMI 30-39.9) Is this a current diagnosis for this admission?: Yes - Time Time Spent with patient: 35 or more minutes Anticipated Discharge Disposition: Home, Self Care Anticipated Discharge Timeframe: within 24 hours
--- NOTE | 2020-01-28 17:13 | EKG REPORT ---
SEVERITY:- ABNORMAL ECG - SINUS RHYTHM VENTRICULAR BIGEMINY CONSIDER ANTERIOR INFARCT ABNORMAL T, CONSIDER ISCHEMIA, LATERAL LEADS : Confirmed by: Antolin Bernstein MD 28-Jan-2020 17:12:53
[2020-01-28] MEDS ORDERED: MAGNESIUM SULFATE/D5W 1 GM/100 ML RTUPB IV ONE (17:30)
[2020-01-28] MEDS ORDERED: LISINOPRIL 10 MG TABLET PO SCH (17:30)
[2020-01-28] MEDS: IPRATROPIUM/ALBUTEROL 0.5-2.5 MG/3 ML AMPUL NEB SCH (19:46)
[2020-01-28] MEDS ORDERED: FLUTICASONE NASAL SPRAY 50 MCG/SPRY 120 SPRAY/16 GM NASL SCH (22:00)
[2020-01-28] MEDS ORDERED: FAMOTIDINE 20 MG TABLET PO SCH (22:00)
[2020-01-28] MEDS ORDERED: GABAPENTIN 300 MG CAPSULE PO SCH (22:00)
[2020-01-28] MEDS ORDERED: MELATONIN 5 MG TABLET PO SCH (22:00)
[2020-01-28] MEDS ORDERED: INSULIN LISPRO 100 UNIT/ML 3 ML VIAL SUBCUT SCH (22:00)
[2020-01-29 00:30] LABS: ANION GAP 9 (5-19); BLOOD UREA NITROGEN 34 mg/dL (7-20); CARBON DIOXIDE 28 mmol/L (22-30); CHLORIDE 96 mmol/L (98-107); GLUCOSE 167 mg/dL (75-110); POTASSIUM 4.8 mmol/L (3.6-5.0)
[2020-01-29] MEDS ORDERED: AMIODARONE HCL 150 MG in DEXTROSE 5%-WATER 100 ML IV ONE (00:56)
[2020-01-29] MEDS ORDERED: DEXTROSE 5%-WATER 500 ML with AMIODARONE HCL 900 MG IV PRN ×2 (00:56)
[2020-01-29] MEDS ORDERED: METOPROLOL TARTRATE 25 MG TABLET PO SCH (01:00)
--- NOTE | 2020-01-29 01:14 | Progress Note ---
Provider Note Provider Note: Mr. Woody is a 64-year-old male with a history of hypertension, type 2 diabetes who was admitted on account of possible reactive airway disease and ventricular bigeminy after he presented with an episode of shortness of breath which woke him up from sleep a day before presentation. I was notified by his nurse that Mr. Woody had a run of ventricular tachycardia which lasted for about 35-40 seconds and subsided spontaneously going back to his baseline bigeminy rhythm. After the incident I evaluated the patient, he was comfortably lying on his bed and he stated that he felt lightheaded during the incident but he denied any chest pain, palpitation or shortness of breath. Patient reported that the episode of lightheadedness lasted for few seconds. Immediately following the incident his blood pressure was in the 120s by 60s, he had irregular pulse but telemetry showed ventricular bigeminy the rest of physical examination was nonremarkable. A stat twelve-lead EKG was done which showed ventricular bigeminy. Serum electrolytes including magnesium were within the normal limits. Troponin trended down to 0.056 from 0.086 at the time of admission. While awaiting for the test result patient had another run of monomorphic V. tach lasting for approximately 35 seconds. Discussed the case with cytologist on-call and decided to start him on amiodarone drip and metoprolol. But before the order was carried out, patient went into pulseless V. tach and then asystole. CODE BLUE was initiated and per ACLS guideline resuscitation attempt was made but the patient could not be revived. Patient was pronounced on 01/29/2020 at 02:54 with the likely cause of being cardiac arrest due to ventricular arrhythmia.
[2020-01-29 01:24] VITALS: BP 167/56
[2020-01-29] MEDS: IPRATROPIUM/ALBUTEROL 0.5-2.5 MG/3 ML AMPUL NEB SCH (03:09)
--- NOTE | 2020-01-29 03:35 | Death Summary ---
Summary Date : 01/29/20 Time of :: 02:54 Resuscitation Status: Full Code - Final Diagnosis (1) Cardiac arrest Is this a current diagnosis for this admission?: Yes (2) Ventricular tachycardia Is this a current diagnosis for this admission?: Yes (3) Reactive airway disease with acute exacerbation Is this a current diagnosis for this admission?: Yes (4) Elevated troponin Is this a current diagnosis for this admission?: Yes (5) Hypertension Is this a current diagnosis for this admission?: Yes (6) Obesity (BMI 30-39.9) Is this a current diagnosis for this admission?: Yes (7) Type 2 diabetes mellitus Is this a current diagnosis for this admission?: Yes (8) Ventricular trigeminy Is this a current diagnosis for this admission?: Yes Hospital Course:: Hospital admission HPI: "JACOB CUEVAS is a 64 year old male with history of hypertension, type 2 diabetes, presents to the hospital with complaints of shortness of breath that happened last night while patient was sleeping. He states he was laying down in bed and could not catch his breath and had to get up. He has not had similar episodes prior to this. Seems this was a one-time event last night. However notably he has had ongoing shortness of breath for most a week now for which he has presented to the ER twice to be evaluated. On the first visit he was diagnosed with bronchitis and sent with an albuterol inhaler. On his next visit just a few days ago, he was tested for COVID-19 which came back negative and was sent home from the ER with prednisone to be taking along with his albuterol inhaler and Advair to help with his bronchitis. He has had some trouble using his albuterol inhaler at home but was able to figure out the workings of it I used it yesterday. He denies any chest pain, fever or chills. Denies any diarrhea, nausea or vomiting. Denies any prior history of COPD though he is a former smoker. Denies any history of CHF, heart attack, CAD. In the ER, patient was noted to be wheezing on exam by ER provider and given nebulizer treatments. Patient currently reports feeling a lot better since then."
[2020-01-29] MEDS ORDERED: AMIODARONE HCL INJ 150 MG/3 ML VIAL IV ONE (05:00)
[2020-01-29] MEDS ORDERED: NOREPINEPHRINE BITARTRATE INJ/PF 4 MG/4 ML SDV IV ONE (05:00)
[2020-01-29] MEDS ORDERED: SUCCINYLCHOLINE CHLORIDE INJ 200 MG/10 ML VIAL ONE (05:00)
[2020-01-29] MEDS ORDERED: ROCURONIUM BROMIDE INJ 50 MG/5 ML VIAL IV ONE (05:00)
[2020-01-29] MEDS ORDERED: EPINEPHRINE INJ 1 MG/10 ML DISP.SYRIN ONE (05:00)
--- NOTE | 2020-01-29 07:03 | XCELERA REPORT ---
[address] [address] Transthoracic Echocardiogram Report Name: JACOB CUEVAS Age: 64 yrs Gender: Male : 1955 Patient Status: Inpatient Patient Location: [address] [place], [place] [address] Study Date: 01/28/2020 06:42 PM History: PVC Dysonea Height: 72 in Weight: 286 lb BSA: 2.5 m2 Procedure: A complete two-dimensional transthoracic echocardiogram was performed (2D, M-mode, spectral and color flow Doppler). The study was technically adequate with some images being suboptimal in quality. Reason For Study: constant bigeminy trigeminy. ?? cardiomyopathy Ordering Physician: SUE CHURCH Performed By: Mable Medina Interpretation Summary Frequent PVCs noted during study. Left ventricular systolic function is normal. The Ejection Fraction estimate is 55-60% The right ventricle is normal in size and function. There is a trace amount of mitral regurgitation There is no aortic valve stenosis There is a trace amount of tricuspid regurgitation There is mild to moderate pulmonary hypertension by echo There is no pericardial effusion. MMode/2D Measurements & Calculations RVDd: 3.3 cm LVIDd: 5.6 cm FS: 31.5 % Ao root diam: 3.2 cm IVSd: 1.4 cm LVIDs: 3.8 cm EDV(Teich): 152.3 ml Ao root area: 7.9 cm2 LVPWd: 1.3 cm ESV(Teich): 62.8 ml LA dimension: 4.6 cm EF(Teich): 58.8 % Doppler Measurements & Calculations MV E max denise: MV P1/2t max denise: Ao V2 max: LV V1 max P.3 cm/sec 103.4 cm/sec 156.4 cm/sec 7.6 mmHg MV A max denise: MV P1/2t: 145.0 msec Ao max PG: LV V1 max: 72.3 cm/sec MVA(P1/2t): 1.5 cm2 9.8 mmHg 138.2 cm/sec MV E/A: 1.1 MV dec slope: 208.8 cm/sec2 MV dec time: 0.24 sec PA V2 max: PI end-d denise: TR max denise: MV P1/2t-pr_phl: 95.7 cm/sec 116.7 cm/sec 251.1 cm/sec 145.0 msec PA max PG: TR max P.7 mmHg 25.2 mmHg Left Ventricle The left ventricle is mildly dilated. There is moderate concentric left ventricular hypertrophy. Left ventricular systolic function is normal. The Ejection Fraction estimate is 55-60%. Doppler measurements suggest pseudonormalized left ventricular relaxation, which is associated with grade II/IV or mild to moderate diastolic dysfunction. Regional wall motion abnormalities cannot be excluded due to limited visualization. Right Ventricle The right ventricle is normal in size and function. Atria The right atrium is normal. The left atrium is mildly dilated. The interatrial septum is intact with no evidence for an atrial septal defect. There is no Doppler evidence for an interatrial shunt. Mitral Valve The mitral valve is grossly normal. There is no mitral valve stenosis. There is a trace amount of mitral regurgitation. Aortic Valve The aortic valve is not well visualized secondary to technical limitations. The aortic valve opens well. There is no aortic valve stenosis. No aortic regurgitation is present. Tricuspid Valve The tricuspid valve is normal in structure and function. There is no tricuspid stenosis. There is a trace amount of tricuspid regurgitation. Right ventricular systolic pressure is estimated to be elevated at 30-40mmHg. There is mild to moderate pulmonary hypertension by echo. Pulmonic Valve The pulmonic valve is not well visualized. There is a trace or physiologic amount of pulmonic regurgitation. Great Vessels The aortic root is normal size. The inferior vena cava appeared dilated and decreased < 50% with respiration (RAP 15-20 mmHg). Effusions There is no pericardial effusion. : SUE CHURCH Anil
--- NOTE | 2020-01-29 07:26 | EKG REPORT ---
SEVERITY:- ABNORMAL ECG - SINUS RHYTHM VENTRICULAR BIGEMINY POOR R WAVE PROGRESSION : Confirmed by: Antolin Bernstein MD 29-Jan-2020 07:25:59
[2020-01-29] MEDS ORDERED: AZITHROMYCIN 250 MG TABLET PO SCH (10:00)
[2020-01-29] MEDS ORDERED: DOXYCYCLINE HYCLATE 100 MG TABLET PO SCH (10:00)
[2020-01-29] MEDS ORDERED: METFORMIN HCL 500 MG TABLET PO SCH (10:00)
[2020-01-29] MEDS ORDERED: PREDNISONE 20 MG TABLET PO SCH (10:00)
[2020-01-29] MEDS ORDERED: PIOGLITAZONE HCL 15 MG TABLET PO SCH (10:00)
[2020-01-29] MEDS ORDERED: ENOXAPARIN SODIUM INJ 40 MG/0.4 ML DISP.SYRIN SUBCUT SCH (10:00)
[2020-01-29] MEDS ORDERED: GABAPENTIN 300 MG CAPSULE PO SCH (12:00)
--- NOTE | 2020-01-29 22:11 | Death Summary ---
Summary Date : 01/29/20 Time of :: 02:54 Autopsy: Yes Resuscitation Status: Full Code - Final Diagnosis (1) Pulseless ventricular tachycardia Is this a current diagnosis for this admission?: Yes (2) Ventricular trigeminy Is this a current diagnosis for this admission?: Yes (3) Reactive airway disease with acute exacerbation Is this a current diagnosis for this admission?: Yes (4) Acute bronchitis with bronchospasm Is this a current diagnosis for this admission?: Yes (5) Elevated troponin Is this a current diagnosis for this admission?: Yes (6) Hypertension Is this a current diagnosis for this admission?: Yes (7) Type 2 diabetes mellitus Is this a current diagnosis for this admission?: Yes (8) Obesity (BMI 30-39.9) Is this a current diagnosis for this admission?: Yes Hospital Course:: Brief hospital course Patient presented w/ SOB. Noted to be wheezing in ER. CXR showed atelectasis mild in right lung. COVID test had been negative on his prior ER visit 4 days prior. Received nebs in the ER. Patient wanted to go home as his breathing had improved but was admitted for observation after noting Trigeminy rhythm on his EKG. He denied chest pain and was hemodynamically stable. No hypoxia noted. Troponins were trended 0.086-->0.086. I discussed case with Utilization Review Coordinator on admission. Electrolytes were optimal. Mag sulfate given. Kept on environmental monitoring specialist. Received Lopressor overnight. Overnight, he briefly went into sustained VT for about 40secs. Assessed by Pipeline Controller at bedside at the time and was hemodynamically stable. EKG subsequently showed Bigeminy. Electrolytes were repeated which were still optimal and troponin was further down to 0.056. Pipeline Controller discussed case with Utilization Review Coordinator. Amiodarone ordered. However, shortly after patient suddenly went into sustained VT again and degenerated immediately into Pulseless VTach. CODE PATRICIA called at 1:45am. CODE BLUE lasted about an hour including several rounds of CPR, epi, defibrillation, amiodarone [Refer to Code note in paper chart for full details]. Time of called at 0254am by Pipeline Controller. Initial attempts to contact family were unsuccessful as documented. I was able to get hold of patient's mother Domi later that morning and informed her of what happened. Also contacted patient brother per Domi's request. Offered condolences. Patient's mother would like an autopsy. Notified Nursing supercharger repair supervisor who notified medical claims examiner.
== END 2020-01-29 07:00 | disposition expired ==
LOC: ER 10:11 → EH 16:31 → 4S 18:49
PROVIDERS: ADMIT Internal Medicine; ATTEND Internal Medicine
DX: J44.1 Chronic obstructive pulmonary disease with (acute) exacerbation (principal); J20.9 Acute bronchitis, unspecified; I47.2 Ventricular tachycardia; E11.40 Type 2 diabetes mellitus with diabetic neuropathy, unspecified; R00.8 Other abnormalities of heart beat; R79.89 Other specified abnormal findings of blood chemistry; I10 Essential (primary) hypertension; E11.9 Type 2 diabetes mellitus without complications; E66.9 Obesity, unspecified; F41.9 Anxiety disorder, unspecified; Z87.891 Personal history of nicotine dependence; Z79.899 Other long term (current) drug therapy
CPT/HCPCS: 93005 ×2; 94640 ×3; 99285; 96375; 96365; 36415; 87040; 82962 ×2; 83735; 85025; 85730; 87077; 80053; 81001; 84484; 87186; 87150 ×26; 83880; 93306; 71045; 93010; 92950; G0378 ×3; J3490 ×4; J0171; J1815; J2930; J3475; J0330; J0696; J0282; J7613